=== PATIENT | female | born 1930 | race Caucasian/White ===

== ENCOUNTER 2020-01-05 04:07 | Emergency (ER) | payer MEDICARE, OTHER ==
[~2020-01-05] VITALS: Ht 167.6 cm; Wt 90.7 kg
[~2020-01-05 04:07] MED LIST: ALPRAZOLAM 0.50.5 M1; ALTACE5 M1; AMOXIL 875 MG875 M1; ASPIRIN EC81 M1 PO; BINOSTO70 MG PO; CARVEDILOL12.5 MG PO; IBUPROFEN 200200 M1; ICAPS AREDS FO1 EACH; KEFLEX250 MG PO; KEFLEX500 MG PO; LEVOTHROID88 MCG; LEVOTHYROXIN0.088 MG PO; MACULAR VITAMI1 EACH PO; NAPROSYN500 MG; OMEPRAZOLE20 M2; PROAIR HFA8.5 GM INH; PROTONIX40 M1 PO; SIMVASTATIN40 MG PO; SPIRIVA INH; TESSALON200 MG; THERAGRAN-M PR1 EAC1 PO; TRICOR145 MG PO; TYLENOL EX-STR500 M2; VENTOLIN HFA 1818 GM INH; VITAMIN D 5050000 I1; XARELTO15 MG PO; ZOLOFT50 MG PO
[2020-01-05 04:52] LABS: ABSOLUTE EOSINOPHILS 0.1 thou/uL (0.0-0.7); ABSOLUTE LYMPHOCYTES 1.1 thou/uL (0.8-5.3); ABSOLUTE MONOCYTES 0.4 thou/uL (0.0-1.2); ABSOLUTE NEUTROPHILS 4.9 thou/uL (1.6-8.1); BASOPHILS 0.7 %; HEMATOCRIT 36.8 % (37.0-47.0); HEMOGLOBIN 12.4 gm/dL (12.0-15.0); LYMPHOCYTES 16.8 %; MCH 28.4 pg (26.0-34.0); MCHC 33.6 g/dL (28.0-37.0); MCV 84.6 fL (80.0-100.0); MONOCYTES 6.3 %; MPV 9.3 fl. (7.2-11.1); NUCLEATED RBCS 0 /100WBC; PLATELET COUNT* 203 thou/uL (150-400); POLYS 75.2 %; RBC 4.36 mil/uL (4.20-5.00); RDW-CV 15.1 % (10.5-14.5); WBC 6.5 thou/uL (4.0-11.0)
[2020-01-05 04:56] LABS: URINE BILIRUBIN NEGATIVE (Negative); URINE BLOOD NEGATIVE (Negative); URINE CLARITY CLEAR; URINE COLOR YELLOW; URINE GLUCOSE-RANDOM NEGATIVE (Negative); URINE KETONES NEGATIVE (Negative); URINE LEUKOCYTES-REFLEX NEGATIVE (Negative); URINE NITRITE-REFLEX NEGATIVE (Negative); URINE PROTEIN NEGATIVE (Negative); URINE SPECIFIC GRAVITY 1.015 (1.005-1.030); URINE UROBILINOGEN 0.2 E.U./dl (0.2-1.0)
[2020-01-05 05:01] LABS: CALCIUM 9.1 mg/dL (8.5-10.1); POTASSIUM 4.2 mmol/L (3.5-5.1)
[2020-01-05 05:06] LABS: ALBUMIN 3.7 g/dL (3.4-5.0); TOTAL BILIRUBIN 0.4 mg/dL (<0.1-1.0); TOTAL PROTEIN 7.3 g/dL (6.4-8.2)
[2020-01-05 06:40] VITALS: BP 141/61
== END 2020-01-05 06:43 | disposition home or self-care (01) ==
LOC: M.ERS 04:07
PROVIDERS: Personal Emergency Response Attendant
DX: M25.532 Pain in left wrist (principal); Z20.828 Contact with and (suspected) exposure to other viral communicable diseases; E78.00 Pure hypercholesterolemia, unspecified; I10 Essential (primary) hypertension; K21.9 Gastro-esophageal reflux disease without esophagitis; M81.0 Age-related osteoporosis without current pathological fracture; Z79.82 Long term (current) use of aspirin; Z79.899 Other long term (current) drug therapy; W18.39XA Other fall on same level, initial encounter; Y93.89 Activity, other specified; Y92.89 Other specified places as the place of occurrence of the external cause; Y99.8 Other external cause status